=== PATIENT | female | born 1965 | race American Indian/Alaskan Native ===

== ENCOUNTER 2022-05-28 13:16 | Outpatient (CLI) | payer OTHER | END 2022-05-28 13:25 | disposition home or self-care (01) | LOC: RAD 13:16 | PROVIDERS: ATTEND Orthopaedic Surgery | DX: S20.219A Contusion of unspecified front wall of thorax, initial encounter (principal); M25.551 Pain in right hip ==

== ENCOUNTER 2022-06-01 09:37 | Outpatient (CLI) | payer OTHER | END 2022-06-01 09:39 | disposition home or self-care (01) | LOC: NUCLEAR 09:37 | PROVIDERS: ATTEND Orthopaedic Surgery | DX: M25.551 Pain in right hip (principal) | CPT/HCPCS: 78315; A9519 ==